=== PATIENT | female | born 1980 | race Caucasian/White ===

== ENCOUNTER → 2016-09-07 | Outpatient (CLI) | payer BC ==
[~2016-09-07] MED LIST: ATOR10TA PO; GADOBUTROL 10 MMOL/10 ML VIAL IV ONE; OMEP40CA5 PO; SERT50TA PO
--- NOTE | 2016-09-07 16:09 | KCIC ---
PROCEDURE MRI right supraclavicular mass within without contrast. HISTORY Right supraclavicular mass. TECHNIQUE MRI of the right supraclavicular region that was performed before and after the intravenous administration of 8 milliliters Gadavist. COMPARISON 08/30/2010. FINDINGS There is a fat signal mass in the right supraclavicular region as seen on the prior study. It measures 6.3 x 3.6 x 3.0 centimeters. Previously it measured 5.8 x 2.4 x 2.9 centimeters. There is no enhancing or soft tissue component. It is completely subcutaneous and does not extend deep to the clavicle. There is bone marrow edema within the distal clavicle. Acromioclavicular osteoarthritis is mild. There are no enlarged lymph nodes. IMPRESSION - Benign-appearing 6.3 x 3.6 cm subcutaneous lipoma in the right supraclavicular region. This has increased in size slowly since 2010. Ongoing follow-up or surgical consultation are suggested given instability. - Bone marrow edema within the distal clavicle suggests a stress lesion or contusion. Correlate for trauma or repetitive stress. Electronically signed by: Alex Salas (Sep 07, 2016 16:07:31)
== END | disposition home or self-care (01) ==
LOC: KCIC MRI 13:37
PROVIDERS: ATTEND Nurse Practitioner Family
DX: D17.0 Benign lipomatous neoplasm of skin and subcutaneous tissue of head, face and neck (principal)
CPT/HCPCS: 70543; A9585

== ENCOUNTER → 2018-04-09 | Outpatient (CLI) | payer BC ==
[~2018-04-09] MED LIST changes: -GADOBUTROL 10 MMOL/10 ML VIAL IV ONE
--- NOTE | 2018-04-09 09:25 | KCIC ---
MRI Cervical Spine Without Contrast History: Bilateral shoulder pain, neck pain, bilateral upper extremity pain and numbness Technique: Multiplanar, multi sequential noncontrast MR imaging was performed of the cervical spine. Comparison: None Findings: Cervical vertebral body stature and AP alignment are preserved. There is straightening of the cervical spine. Cervical cord caliber is within normal limits without significant focal signal abnormality. There is pgly-ay-zdrmxavz degenerative disc disease at C4-5 and to lesser degree at C5-6. There are posterior and anterior annular tears at C5-C6 and also posteriorly at C4-5. Not included on the axial images, there is buckling of the ligamentum flavum on the right at the T2-3 level with likely at least mild right lateral recess stenosis, also mild narrowing of the posterior right neural foramen. C2-C3: Spinal canal and the neural foramina are adequate. C3-C4: There is minimal posterior central protrusion. Central canal is minimally narrowed to about 9 mm. Neural foramina are overall adequate. There is minimal right uncovertebral degenerative change. C4-C5: There is disc osteophyte complex, superimposed protrusion, more eccentric to the right lateral recess. Central canal is narrowed to about 7 mm, greater degree of moderate right lateral recess stenosis. There is effacement of ventral subarachnoid space and contact of the ventral cord greater in the right lateral recess. Left neural foramen is adequate. There is right uncovertebral degenerative change. There is moderate to severe narrowing of the right neural foramen. C5-C6: There is broad, anterior extradural signal abnormality which is internally hyperintense on the T2 and STIR sequences, extent slightly above and to a greater degree below the intervertebral disc space. This is estimated about 12 mm transverse by 3 mm AP by about 17 mm CC. This is superimposed on more central posterior protrusion. There is indentation upon the ventral thecal sac cord with significant central canal stenosis about 3-4 mm. There is bilateral facet degenerative change. C6-C7: There is a small protrusion in the left lateral recess with mild indentation upon the ventral thecal sac, partial focal effacement of the ventral subarachnoid space. Central canal is borderline about 10 mm. Neural foramina are adequate. C7-T1: Neural foramina and spinal canal are adequate. Impression: 1. There is severe spinal stenosis at C5-6. There is anterior extradural signal abnormality centered about this level although extent below and to lesser degree above the intervertebral disc space level. This could be due to disc extrusion although underlying fluid of uncertain sterility or less likely hematoma not excluded based on signal features, more hyperintense on the T2 and STIR sequences than adjacent disc. 2. There is egym-dd-aalvutlv spinal stenosis with a greater degree of right lateral recess stenosis C4-5. There is mild spinal stenosis C3-4. 3. There is moderate to severe narrowing of the right C4-5 neural foramen. 4. There is uztf-xc-shhhdbcy degenerative disc disease at C4-5 and to lesser degree at C5-6. Findings discussed with speech assistant for Dr. Lino at 04/09/2018 9:21 AM, to inform doctor of findings. Electronically signed by: Corwin Us MD (04/09/2018 9:22 AM) [id number]
== END | disposition home or self-care (01) ==
LOC: KCIC MRI 07:35
PROVIDERS: ATTEND Orthopaedic Surgery
DX: M50.322 Other cervical disc degeneration at C5-C6 level (principal); M48.02 Spinal stenosis, cervical region; M85.88 Other specified disorders of bone density and structure, other site
CPT/HCPCS: 72141

== ENCOUNTER → 2018-04-18 | Outpatient (CLI) | payer BC ==
[2018-04-18 13:17] LABS: BASO % 0 % (0-3); EOS % 0 % (0-3); HEMATOCRIT 42.9 % (36.0-47.0); HEMOGLOBIN 15.2 g/dL (12.0-15.5); LYMPH # 3.1 x10^3/uL (1.0-4.8); LYMPH % 30 % (24-48); MEAN CORPUSCULAR HEMOGLOBIN 34 pg (25-35); MEAN CORPUSCULAR HGB CONC 35 g/dL (31-37); MEAN CORPUSCULAR VOLUME 95 fL (79-100); MONO # 0.5 x10^3/uL (0.0-1.1); MONO % 5 % (0-9); NEUT # 6.7 x10^3uL (1.8-7.7); NEUT % 65 % (31-73); PLATELET COUNT 251 x10^3/uL (140-400); RED BLOOD COUNT 4.52 x10^6/uL (3.50-5.40); RED CELL DISTRIBUTION WIDTH 12.8 % (11.5-14.5); WHITE BLOOD COUNT 10.4 x10^3/uL (4.0-11.0)
[2018-04-18 13:47] LABS: ALBUMIN/GLOBULIN RATIO 1.1 (1.0-1.7); CALCIUM 9.7 mg/dL (8.5-10.1); CREATININE 0.7 mg/dL (0.6-1.0); GFR 93.2; POTASSIUM 3.9 mmol/L (3.5-5.1); TOTAL BILIRUBIN 0.4 mg/dL (0.2-1.0); TOTAL PROTEIN 7.5 g/dL (6.4-8.2)
== END | disposition home or self-care (01) ==
LOC: SURGPAT 12:08
PROVIDERS: ATTEND Neurological Surgery
DX: Z01.818 Encounter for other preprocedural examination (principal); M50.10 Cervical disc disorder with radiculopathy, unspecified cervical region; M48.02 Spinal stenosis, cervical region
CPT/HCPCS: 36415; 80053; 85025; 87641

== ENCOUNTER 2018-04-25 10:21 | Day surgery (SDC) | payer BC ==
[~2018-04-25] VITALS: Ht 160 cm; Wt 86.6 kg
--- NOTE | 2018-04-25 09:35 | HP ---
ADMIT DATE: 04/25/2018. HISTORY OF PRESENT ILLNESS: The patient is a pleasant 37-year-old, who is noticing some neck pain and pain which radiates into both of her proximal shoulders. She also notices that her middle, ring and little fingers are numb. The problem has been present for the last few months. It started spontaneously. She rates when it is severe that it is 6/10. There really is not any pain in her arms. She does not notice any problems with unsteadiness. Being more active and using her arms more can increase the feelings of numbness. It can also increase her neck and trapezius region pain. She is not taking any pain medications. She did have Toradol and steroid injection by her PCP. She has not noticed any problems with unsteadiness. PAST MEDICAL HISTORY: Arthritis, rheumatoid arthritis, tumors or growth. PAST SURGICAL HISTORY: Tonsillectomy in 1981, cholecystectomy in 2006, partial hysterectomy in 2012. FAMILY HISTORY: Alzheimer disease, aneurysm, cancer, diabetes, heart problem/disease, hypertension, [place] at an early age, migraine headaches. 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 . Denies substance abuse. Smokes half pack per day and has for 15 years. Drinks alcohol 1-2 times per year. Drinks coffee and soda daily. ALLERGIES: No known drug allergies. CURRENT MEDICATIONS: Omeprazole, sertraline, atorvastatin, gabapentin. REVIEW OF SYSTEMS: A 12-point review of systems was obtained and is noncontributory except for that mentioned above. PHYSICAL EXAMINATION: NEUROSURGERY EXAMINATION: GENERAL APPEARANCE: Alert, pleasant, no acute distress. HEAD: Normocephalic and atraumatic. NECK AND THYROID: Mild tenderness with palpation of posterior cervical region. SKIN: Warm and dry. MUSCULOSKELETAL: Cervical paraspinal muscle bulk is normal, cervical range of motion is restricted, normal range of motion of the upper extremities bilaterally. EXTREMITIES: No clubbing, cyanosis or edema. NEUROLOGIC: Alert and oriented x 3, normal recent and remote memory, strength 5/5 in bilateral upper and lower extremities, sensory was intact to light touch in the upper and lower extremities except for decrease involving the middle and ring fingers of both hands, reflexes were present and symmetric in the upper and lower extremities bilaterally and were 2/4 except for knee jerks which were 3/4. Toes were downgoing. Normal gait. IMAGING: I reviewed her cervical MRI scan. On that study, there is severe spinal stenosis at C5-C6. There is also an anterior extradural signal abnormality at this level extending into the canal, which was felt by the neurosurgeon, Dr. Murphy and neuroradiologist at to be consequence of a disc extrusion. She has sbmg-vo-uwhpoqrg stenosis at C4-C5. ASSESSMENT/PLAN: The patient has severe spinal stenosis at C5-C6. My feeling is that she would best be treated with an anterior cervical discectomy and fusion. She understands. She would like to proceed. We will make the arrangements. ASTRID JACOBSON MD DR: AIDA/jesica JOB#: [id number] / [id number] DIDIER
[~2018-04-25 10:21] MED LIST changes: +BACITRACIN 50,000 UNIT in IV NORMAL SALINE 1000ML BAG 1,000 ML IRR ONE; +BUPIVAC MPF-EPI 0.5%-1:200000 30 ML VIAL. ONE; +GELATIN SPONGE SIZE 100. ONE; +HYDROmorphone 2 MG/ML VIAL IV PRN; +IV RINGERS,LACTATED 1000ML 1,000 ML IV SCH; +LIDOCAINE 1% PF 2 ML VIAL. ID PRN; +MORPHINE SULFATE 2 MG/ML VIAL. IV PRN; +ONDANSETRON PF 4 MG/2 ML VIAL. IV PRN; +PROCHLORPERAZINE 10 MG/2 ML VIAL. IV PRN; +THROMBIN TOPICAL 5,000 UNIT VIAL. ONE; +fentaNYL PF VIAL 100 MCG/2 ML VIAL IV PRN
[2018-04-25] MEDS ORDERED: ROCURONIUM 50 MG/5 ML VIAL. ONE ×2 (10:54→12:59)
[2018-04-25] MEDS ORDERED: MIDAZOLAM HCL/PF 2 MG/2 ML VIAL. ONE (11:18)
[2018-04-25] MEDS ORDERED: REMIFENTANIL 1 MG VIAL. IV ONE (11:18)
[2018-04-25] MEDS ORDERED: fentaNYL PF VIAL 100 MCG/2 ML VIAL ONE (11:18)
[2018-04-25] MEDS ORDERED: DEXAMETHASONE SOD PHOS 20 MG/5 ML VIAL. ONE (11:19)
[2018-04-25] MEDS ORDERED: DESFLURANE > 120 MINUTES IH ONE (11:19)
[2018-04-25] MEDS ORDERED: ONDANSETRON PF 4 MG/2 ML VIAL. ONE (11:19)
[2018-04-25] MEDS ORDERED: PROPOFOL 50 ML IV ONE (11:19)
[2018-04-25] MEDS ORDERED: PHENYLEPHRINE in 0.9% NACL PF 1 MG/10 ML SYRINGE. IV ONE (11:19)
[2018-04-25] MEDS ORDERED: PROPOFOL 20 ML IV ONE (11:19)
[2018-04-25] MEDS ORDERED: LIDOCAINE 2% PF Vial for OR 5 ML VIAL. ONE (11:19)
[2018-04-25] MEDS ORDERED: 0.9 % SODIUM CHLORIDE 20 ML VIAL. IJ ONE (11:22)
[2018-04-25] MEDS ORDERED: ALBUTEROL SULFATE 2.5 MG/3 ML NEBU. ONE (12:46)
[2018-04-25] MEDS ORDERED: NEOSTIGMINE METHYLSULFATE 5 MG/5 ML SYRINGE. ONE (13:42)
[2018-04-25] MEDS ORDERED: GLYCOPYRROLATE 1 MG/5 ML VIAL. ONE (13:42)
--- NOTE | 2018-04-25 13:44 | RAD ---
Portable chest, 04/25/2018: HISTORY: Shortness of breath Comparison is made to a study from 07/26/2015. An ET tube is in place with its tip located well above the ron. The heart size is normal. There are streaky suprahilar opacities bilaterally, right greater than left suggesting atelectasis/infiltrate. There is only minimal linear atelectasis in the left base. There is no evidence of pneumothorax or pleural fluid. IMPRESSION: 1. The ET tube is in satisfactory position. 2. Moderate streaky bilateral suprahilar opacities, right greater than left suggesting atelectasis/infiltrate. Aspiration is a possibility. Electronically signed by: Demetrio Collins MD (04/25/2018 1:41 PM) [facility]
[2018-04-25] MEDS ORDERED: SEVOFLURANE 61 TO 120 MINUTES. IH ONE (14:15)
--- NOTE | 2018-04-25 14:54 | DISCH ---
DISCHARGE INSTRUCTIONS Condition on Discharge Condition on Discharge: Stable Activity After Discharge Activity Instructions for Disc: Activity as tolerated Lifting Instructions after Dis: No heavy lifting Diet after Discharge Additional Diet Restrictions: resume home diet Contacting the after DC Call your doctor for: Concerns you may have Follow-Up Follow up with: Dr. Jacobson to reschedule surgery Follow Up With: pulmonary Dr. Isaacs [phone] on MondayApril 27 at 11:30 milly 203 ASTRID JACOBSON MD Apr 25, 2018 14:54
[2018-04-25] MEDS ORDERED: ALBUTEROL SULFATE 8GM INHALER. ONE (15:00)
--- NOTE | 2018-04-25 15:04 | EKG ---
[facility] [address] [place] [address] Test Date: 2018-04-25 Test Time: 14:19:59 Pat Name: OLRI ESPINOSA Department: Room: Gender: F Gas Controller: ZAHIDA : 1980 Requested By: ASTRID JACOBSON Order Number: [id number] Reading MD: Measurements Intervals [place] Rate: 72 P: 54 [place]: 120 QRS: 78 QRSD: 76 T: 40 QT: 362 QTc: 398 Interpretive Statements SINUS RHYTHM NORMAL ECG RI6.01 No previous ECG available for comparison
[2018-04-25 15:08] VITALS: BP 114/64
--- NOTE | 2018-04-26 09:28 | EKG ---
[facility] [address] [place] [address] Test Date: 2018-04-25 Test Time: 14:19:59 Pat Name: LORI ESPINOSA Department: Room: Gender: F Client Manager Large Law: : 1980 Requested By: ASTRID JACOBSON Order Number: [id number] Reading MD: Ish Alonzo Measurements Intervals [place] Rate: 72 P: 54 NV: 120 QRS: 78 QRSD: 76 T: 40 QT: 362 QTc: 398 Interpretive Statements SINUS RHYTHM NORMAL ECG RI6.01 No previous ECG available for comparison Electronically Signed On 04-30-2018 12:35:02 WOOL SACKER by Ish Alonzo
--- NOTE | 2018-04-27 10:58 | EKG ---
[facility] [address] [place] [address] Test Date: 2018-04-25 Test Time: 14:19:59 Pat Name: LORI ESPINOSA Department: Room: Gender: F Ccna: : 1980 Requested By: ASTRID JACOBSON Order Number: [id number] Reading MD: Ish Alonzo Measurements Intervals [place] Rate: 72 P: 54 NV: 120 QRS: 78 QRSD: 76 T: 40 QT: 362 QTc: 398 Interpretive Statements SINUS RHYTHM NORMAL ECG RI6.01 No previous ECG available for comparison Electronically Signed On 04-30-2018 12:34:56 HOP GROWER by Ish Alonzo
[2018-05-14] MEDS ORDERED: FLUT10.6 IH (14:54)
[2018-05-14] MEDS ORDERED: OXYC-328 PO (14:54)
== END 2018-04-25 15:08 | disposition home or self-care (01) ==
LOC: SURG 10:21
PROVIDERS: ATTEND Neurological Surgery
DX: M48.02 Spinal stenosis, cervical region (principal); Z53.8 Procedure and treatment not carried out for other reasons; M50.122 Cervical disc disorder at C5-C6 level with radiculopathy; M06.9 Rheumatoid arthritis, unspecified; M19.90 Unspecified osteoarthritis, unspecified site; Z90.49 Acquired absence of other specified parts of digestive tract; Z90.710 Acquired absence of both cervix and uterus; Z98.890 Other specified postprocedural states; Z82.0 Family history of epilepsy and other diseases of the nervous system; Z83.3 Family history of diabetes mellitus; Z82.49 Family history of ischemic heart disease and other diseases of the circulatory system; F17.210 Nicotine dependence, cigarettes, uncomplicated; Z72.89 Other problems related to lifestyle; Z79.899 Other long term (current) drug therapy; Z91.048 Other nonmedicinal substance allergy status
CPT/HCPCS: 71045; 93005; J0690; J1100; J2001; J2250; J2405; J2704; J2710; J3010; J3490; J7613; J2370; J7030

== ENCOUNTER → 2018-05-02 | Outpatient (CLI) | payer BC ==
[2018-04-25 15:08] VITALS: BP 114/64
[~2018-05-02] MED LIST changes: -BACITRACIN 50,000 UNIT in IV NORMAL SALINE 1000ML BAG 1,000 ML IRR ONE; -BUPIVAC MPF-EPI 0.5%-1:200000 30 ML VIAL. ONE; -GELATIN SPONGE SIZE 100. ONE; -HYDROmorphone 2 MG/ML VIAL IV PRN; -IV RINGERS,LACTATED 1000ML 1,000 ML IV SCH; -LIDOCAINE 1% PF 2 ML VIAL. ID PRN; -MORPHINE SULFATE 2 MG/ML VIAL. IV PRN; -ONDANSETRON PF 4 MG/2 ML VIAL. IV PRN; -PROCHLORPERAZINE 10 MG/2 ML VIAL. IV PRN; -THROMBIN TOPICAL 5,000 UNIT VIAL. ONE; -fentaNYL PF VIAL 100 MCG/2 ML VIAL IV PRN
--- NOTE | 2018-05-02 14:03 | RAD ---
CT chest without contrast 05/02/2018 Clinical indications: Shortness of air, abnormal chest radiograph COMPARISON: Chest radiograph 05/02/2018 TECHNIQUE: Multiple CT images of the chest were obtained without contrast. *One or more of the following individualized dose reduction techniques were utilized for this examination: 1. Automated exposure control. 2. Adjustment of the mA and/or kV according to patient size. 3. Use of iterative reconstruction technique. FINDINGS: Heart size normal without significant pericardial effusion. The thoracic aorta is normal in caliber. No axillary, mediastinal or hilar lymphadenopathy. There are scattered small mediastinal and hilar calcified granulomas. There is minimal triangle or soft tissue density in the anterior mediastinum consistent with residual thymic tissue. The central airways are patent. Resolution of bilateral suprahilar opacities seen on recent chest radiograph. No pleural effusion, pneumothorax or focal consolidation. No suspicious noncalcified pulmonary nodules. There is a tiny calcified granuloma in the mid right upper lobe. No destructive osseous lesions. Limited images of the upper abdomen: Cholecystectomy. IMPRESSION: Resolution of suprahilar opacities most consistent with atelectasis. Electronically signed by: Clinton Garcia MD (05/02/2018 1:59 PM) [id number]
== END | disposition home or self-care (01) ==
LOC: CT 13:50
PROVIDERS: ATTEND Internal Medicine Pulmonary Disease
DX: J84.10 Pulmonary fibrosis, unspecified (principal); Z90.49 Acquired absence of other specified parts of digestive tract
CPT/HCPCS: 71250

== ENCOUNTER → 2018-05-14 | Outpatient (CLI) | payer BC ==
[2018-04-25 15:08] VITALS: BP 114/64
[~2018-05-14] MED LIST changes: +DOCU-109 PO; +FLUT10.6 IH; +METH750T2 PO; +OXYC1TAB22 PO; +OXYC1TAB7 PO
--- NOTE | 2018-05-15 10:11 | SLEEP ---
DATE OF STUDY: 05/14/2018 PRIMARY CARE HYSICIAN: Dr. Jacqueline Calle. REFERRING PHYSICIAN: Dr. Dougie Guerrero. The patient is 37 years old, weighs 190 pounds and has a BMI of 34. [place] score was 4. The patient underwent diagnostic sleep study at [facility] to rule out ELIDA. During the night study, the patient spent 405 minutes in bed and slept for 356 minutes with a sleep efficiency of 88%. Sleep latency was 50 minutes with a REM latency of 194 minutes. Overall, sleep architecture showed normal stage 1 and stage 2 sleep, increased slow wave and normal REM sleep. During the night study, the patient had 4 obstructive apneas, 1 mixed apnea, no central apneas and 8 hypopneas. The patient's apnea hypopnea index was only 2 per hour. Supine index 3 per hour and the REM index of 7 per hour. EKG monitoring revealed normal sinus rhythm, average heart rate of 67 beats per minute, no arrhythmias seen. Nocturnal oximetry study revealed an average oxygen saturation of 96%, the lowest of 87%. Only 0.3% of the time oxygen saturation remained between 80% and 89%. PLMS were seen at index of 9 per hour and 3 per hour caused EEG arousals. Due to low AHI, the patient did not meet the split night criteria for CPAP initiation. IMPRESSION: 1. No clinically significant sleep disorder breathing. The patient's AHI for the entire night was 2 per hour. 2. No clinically significant nocturnal hypoxia. 3. Mild PLMS, which does not need to be treated. RECOMMENDATIONS: 1. The patient did not meet the criteria for CPAP initiation. 2. Weight loss is advised. 3. Avoid PRESIDENT CEO & FOUNDER depressants. KENTON WALLS MD DR: HERNESTO/jesica JOB#: [id number] / [id number] JACQUELINE Ga MD, GEORGE MD
== END | disposition home or self-care (01) ==
LOC: SLPLAB 18:27
PROVIDERS: ATTEND Internal Medicine Pulmonary Disease
DX: R06.83 Snoring (principal); G47.61 Periodic limb movement disorder
CPT/HCPCS: 95810

== ENCOUNTER 2018-05-16 06:58 | Observation (INO) | payer BC ==
[~2018-05-16] VITALS: Ht 160 cm; Wt 86.6 kg
[2018-05-16] VITALS (7 sets, daily range): BP systolic 100–129; BP diastolic 55–84
[~2018-05-16 06:58] MED LIST changes: +BACITRACIN 50,000 UNIT in IV NORMAL SALINE 1000ML BAG 1,000 ML IRR ONE; -DOCU-109 PO; -METH750T2 PO; -OXYC1TAB7 PO
[2018-05-16] MEDS ORDERED: PROCHLORPERAZINE 10 MG/2 ML VIAL. IV PRN (07:00)
[2018-05-16] MEDS ORDERED: GELATIN SPONGE SIZE 100. ONE (07:00)
[2018-05-16] MEDS ORDERED: fentaNYL PF VIAL 100 MCG/2 ML VIAL IV PRN (07:00)
[2018-05-16] MEDS ORDERED: ONDANSETRON PF 4 MG/2 ML VIAL. IV PRN ×2 (07:00→10:15)
[2018-05-16] MEDS ORDERED: MORPHINE SULFATE 2 MG/ML VIAL. IV PRN (07:00)
[2018-05-16] MEDS ORDERED: THROMBIN TOPICAL 20,000 UNIT SPRAY.SYRN KIT TP ONE (07:00)
[2018-05-16] MEDS ORDERED: IV RINGERS,LACTATED 1000ML 1,000 ML IV SCH (07:00)
[2018-05-16] MEDS ORDERED: BUPIVAC MPF-EPI 0.5%-1:200000 30 ML VIAL. ONE (07:00)
[2018-05-16] MEDS ORDERED: HYDROmorphone 2 MG/ML VIAL IV PRN (07:00)
[2018-05-16] MEDS ORDERED: LIDOCAINE 1% PF 2 ML VIAL. ID PRN (07:00)
[2018-05-16] MEDS ORDERED: IPRATRPIUM/ALBUTEROL 0.5/2.5MG 3 ML NEBU. NEB ONE (07:30)
[2018-05-16] MEDS ORDERED: fentaNYL PF VIAL 250 MCG/5 ML VIAL ONE (08:26)
[2018-05-16] MEDS ORDERED: MIDAZOLAM HCL/PF 2 MG/2 ML VIAL. ONE (08:26)
[2018-05-16] MEDS ORDERED: REMIFENTANIL 2 MG VIAL. IV ONE (08:26)
[2018-05-16] MEDS ORDERED: ROCURONIUM 50 MG/5 ML VIAL. ONE (08:27)
[2018-05-16] MEDS ORDERED: DEXAMETHASONE SOD PHOS 20 MG/5 ML VIAL. ONE (09:46)
[2018-05-16] MEDS ORDERED: PHENYLEPHRINE in 0.9% NACL PF 1 MG/10 ML SYRINGE. IV ONE (09:46)
[2018-05-16] MEDS ORDERED: ONDANSETRON PF 4 MG/2 ML VIAL. ONE (09:46)
[2018-05-16] MEDS ORDERED: PROPOFOL 20 ML IV ONE ×2 (09:46→10:13)
[2018-05-16] MEDS ORDERED: LIDOCAINE 2% PF Vial for OR 5 ML VIAL. ONE (09:46)
[2018-05-16] MEDS ORDERED: SEVOFLURANE > 120 MINUTES. IH ONE (09:47)
[2018-05-16] MEDS ORDERED: ACETAMINOPHEN 325 MG TABLET. PO PRN (10:15)
[2018-05-16] MEDS ORDERED: MAGNESIUM HYDROXIDE 2,400 MG/30 ML ORAL.SUSP. PO PRN (10:15)
[2018-05-16] MEDS ORDERED: NALOXONE 0.4 MG/ML VIAL. IV PRN (10:15)
[2018-05-16] MEDS ORDERED: ZOLPIDEM 5 MG TABLET. PO PRN (10:15)
[2018-05-16] MEDS ORDERED: MAG HYDROX/ALUMINUM HYD/SIMETH 30 ML ORAL.SUSP PO PRN (10:15)
[2018-05-16] MEDS ORDERED: 0.9 % SODIUM CHLORIDE 10 ML DISP.SYRIN. IV PRN (10:15)
[2018-05-16] MEDS ORDERED: CALCIUM CARBONATE 500 MG TAB.CHEW PO PRN (10:15)
[2018-05-16] MEDS ORDERED: diphenhydrAMINE HCL 25 MG CAPSULE PO PRN (10:15)
[2018-05-16] MEDS ORDERED: ePHEDrine PF IN SALINE 50 MG/5 ML DISP.SYRIN IV ONE (10:50)
[2018-05-16] MEDS ORDERED: NEOSTIGMINE METHYLSULFATE 5 MG/5 ML SYRINGE. ONE (11:32)
[2018-05-16] MEDS ORDERED: GLYCOPYRROLATE 1 MG/5 ML VIAL. ONE (11:32)
[2018-05-16] MEDS: fentaNYL PF VIAL 100 MCG/2 ML VIAL IV PRN ×2 (12:17→12:51)
[2018-05-16] MEDS: POTASSIUM CL 20MEQ D5-0.45NACL 1,000 ML IV SCH (12:57)
[2018-05-16] MEDS: oxyCODONE/APAP 5/325 1 TAB TABLET PO PRN ×3 (13:21→21:15)
--- NOTE | 2018-05-16 14:23 | DISCH ---
DISCHARGE INSTRUCTIONS Condition on Discharge Condition on Discharge: Stable Activity After Discharge Activity Instructions for Disc: Activity as tolerated Other activity instructions: no driving for a week Bathing Instructions: Shower-keep dressing dry Lifting Instructions after Dis: No heavy lifting, No pulling or pushing, Do not lift >10 pounds Diet after Discharge Additional Diet Restrictions: resume home diet Wound Incision Care Wound/Incision Care: Ice to area for comfort Other wound/incision instructi: may remove dressing in 48 hours, no soaking Contacting the DRAdalberto after DC Call your doctor for: Concerns you may have Follow-Up Follow up with: Dr. Jacobson's nurse in 2 weeks [phone] ASTRID JACOBSON MD May 16, 2018 14:23
[2018-05-16] MEDS ORDERED: METH750T2 PO (14:25)
[2018-05-16] MEDS ORDERED: OXYC1TAB7 PO (14:25)
[2018-05-16] MEDS ORDERED: DOCU-109 PO (14:25)
[2018-05-16] MEDS: METHOCARBAMOL 750 MG TABLET PO SCH ×2 (14:28→21:15)
[2018-05-16] MEDS: ceFAZolin SODIUM 1 GM in IV DEXTROSE 5% 50 ML IV SCH (16:18)
[2018-05-16] MEDS ORDERED: SERTRALINE 50 MG TABLET. PO SCH (17:00)
[2018-05-16] MEDS ORDERED: BUDESONIDE 0.5 MG/2 ML NEBU. NEB SCH (20:00)
[2018-05-16] MEDS ORDERED: ATORVASTATIN CALCIUM 10 MG TABLET. PO SCH (21:00)
[2018-05-16] MEDS ORDERED: NON FORMULARY ITEM (Fluticasone Propionate (Flovent 44MCG Hfa) 2 PUFF) IH SCH (21:00)
[2018-05-16] MEDS: DOCUSATE SODIUM 100 MG CAPSULE. PO SCH (21:14)
[2018-05-17] MEDS: ceFAZolin SODIUM 1 GM in IV DEXTROSE 5% 50 ML IV SCH ×2 (01:05→08:36)
[2018-05-17] MEDS: oxyCODONE/APAP 5/325 1 TAB TABLET PO PRN ×3 (01:15→09:13)
[2018-05-17] MEDS: POTASSIUM CL 20MEQ D5-0.45NACL 1,000 ML IV SCH (02:20)
[2018-05-17 03:00] VITALS: BP 118/69
[2018-05-17 06:35] VITALS: BP 121/80
[2018-05-17] MEDS ORDERED: PANTOPRAZOLE 40 MG TABLET.DR. PO SCH (07:30)
[2018-05-17] MEDS: METHOCARBAMOL 750 MG TABLET PO SCH (08:34)
[2018-05-17] MEDS: DOCUSATE SODIUM 100 MG CAPSULE. PO SCH (08:34)
[2018-05-17 09:18] VITALS: BP 122/79
--- NOTE | 2018-05-18 18:07 | PATHOLOGY ---
[facility] Accession Number: [id number] . 01 Material submitted: . CERVICAL DISC . 01 Clinical history: . Cervical herniated disc and radiculopathy, stenosis . 02 Diagnosis: Segments of cartilaginous tissue and bone, cervical disc: - Degenerative changes of cartilaginous tissue. LBQ/05/18/2018 . 02 Comment: There is no evidence of an acute inflammatory process or malignancy. (JPM/db; 05/18/2018) . 02 Electronically signed: . Brian Bustos MD, Pathologist NPI- [id number] . 01 Gross description: . Received in formalin labeled "Taylor Uriostegui, cervical disc," are several pieces of glistening, fibrous tissue measuring 2.5 x 2.2 x 0.3 cm in aggregate dimensions, containing small fragments of possible bone. The tissue is filtered and submitted entirely in cassette A1, following decalcification. (TSD; 05/16/2018) TOB/TOB . 02 Pathologist provided ICD-10: M50.30 . 02 CPT . 268546, [id number] Specimen Comment: A courtesy copy of this report has been sent to Specimen Comment: [phone], . Specimen Comment: Report sent to / DR SUTHERLAND Performed at: 01 [facility] [address], [place] [id number] MD Gonsalo Fernández MD Phone: [phone] Performed at: 02 [facility] [address] [place], [place] [id number] MD Brian Bustos MD Phone: [phone]
--- NOTE | 2018-05-23 21:11 | OP ---
DATE OF SURGERY: 05/16/2018 PREOPERATIVE DIAGNOSIS: Cervical spinal stenosis, C5-C6 with cervical myelopathy. POSTOPERATIVE DIAGNOSIS: Cervical spinal stenosis, C5-C6 with cervical myelopathy. OPERATION PERFORMED: Anterior cervical microdiscectomy, C5-C6; anterior cervical interbody fusion, C5-C6 with interbody fusion cage packed with allograft and autograft bone, anterior cervical plate, C5-C6 using the Opteryx system. The operation was done with EMG monitoring, SSEP monitoring, motor evoked potentials, NIMS monitoring, fluoroscopy and microscopic dissection. SURGEON: Miah Jacobson M.D. FISH CAKE MAKER: Sheila García assisted with the surgery. She assisted with the exposure, the microdiscectomy as well as the closure. OPERATIVE INDICATIONS: The patient is a pleasant 37-year-old woman who developed neck pain and then pain, which radiated into both of her arms with numbness in the middle, ring and little fingers of both of her hands. The numbness became more and more severe. On imaging studies, there was severe spinal stenosis present at C5-C6. She did have more moderate stenosis present at C4-C5. I recommended an anterior cervical discectomy at C5-C6. The images suggested a sequestered disc fragment and I did have this reviewed by the neuroradiologist and neurosurgeons at who felt that surgery was appropriate for this level and that this was almost certainly herniated disc material. The patient understood the surgery, the risks involved, the technique of the operation and she wished to go ahead. DESCRIPTION OF PROCEDURE: Following general endotracheal anesthesia, the patient was positioned supine on the operating room table. The anterior cervical region was then prepped and draped in standard fashion. GIULIANO hose and AV impulse boots were applied for DVT prophylaxis. A microscope was draped. Fluoroscopy was then brought to the field. Monitoring was established. Ancef 2 g was given less than 1 hour prior to initiation of the surgery. Using fluoroscopic guidance, incision was made in the midline around to the right side in a skin crease and dissected and skin and subcutaneous tissue and then just sharply divided a portion of the platysma. I dissected around the medial aspect of the sternocleidomastoid and carotid artery sheath down the anterior cervical vertebral body and I reflected the trachea and esophagus contralaterally placing anterior cervical retractors wedged in the longus colli muscles. I placed 14 mm distraction pins in C5 and C6 and brought in the microscope during this time and the remainder of surgery was done with the microscope using microscopic technique. I distracted the disc space. I incised the anterior annulus with #11 blade. I confirmed my positions fluoroscopically. I performed a discectomy with pituitary rongeurs. I scraped away the cartilaginous endplate. Posteriorly, I drilled the posterior spurring and then used the 1 and 2 mm micro Kerrison's to remove the annulus. There was a moderately large subligamentous disc herniation and I began to tease back and remove multiple fragments from superiorly and then, there was a large inferior fragment behind the body of C6, which I gently teased superiorly and removed markedly decompressing the entire region. At this point, though I felt that I had an excellent decompression, I did open widely bilaterally and visualized the dura after opening the posterior ligament. Hemostasis was excellent. I measured and placed interbody fusion cage, which was packed with allograft and autograft bone after this was gently tapped into position. I placed an anterior 12 mm plate and used four 14 mm screws, which were all locked. Following this, then irrigated copiously, removed the retractors, explored carefully. Hemostasis was perfect. I closed the wound in layers with absorbable suture and the skin was closed with a 4-0 subcuticular stitch. I did close the platysma as a separate layer. The patient awakened uneventfully, taken to recovery room in excellent condition and she immediately noticed improvement in her numbness and was quite pleased with the surgery. MIAH JACOBSON MD DR: AIDA/jesica JOB#: [id number] / [id number] DIDIER
== END 2018-05-17 09:43 | disposition home or self-care (01) ==
LOC: SURG 06:58 → 4 SOUTHEST 10:14
PROVIDERS: ADMIT Neurological Surgery; ATTEND Neurological Surgery
DX: M48.02 Spinal stenosis, cervical region (principal); M50.022 Cervical disc disorder at C5-C6 level with myelopathy
CPT/HCPCS: 20930; 20936; 22551; 22853; 76000; 88304; 88311; 94640; 96365; 96366; 97116; 97162; 97530; A7015; C1713; C1821; G0378; G0379; G8978; G8979; G8980; J0690; J0780; J1100; J2001; J2250; J2370; J2405; J2704; J2710; J3010; J3490; J7030; J7120

== ENCOUNTER → 2019-02-26 | Outpatient (CLI) | payer BC ==
[~2019-02-26] MED LIST changes: -BACITRACIN 50,000 UNIT in IV NORMAL SALINE 1000ML BAG 1,000 ML IRR ONE; +DOCU-109 PO; +METH750T2 PO; +OXYC1TAB7 PO
--- NOTE | 2019-02-26 15:59 | KCIC ---
CERVICAL SPINE WO CONTRAST History: Cervical stenosis. Radiculopathy. Chronic neck pain and right upper extremity pain. Previous anterior fusion. Technique: Multiplanar, multi sequential noncontrast MR imaging was performed of the cervical spine. Comparison: April 09, 2018 Findings: Interstitial stabilization and interbody fusion C5-C6. Susceptibility artifact degrades evaluation. Normal alignment. Normal vertebral body height. No fracture. No pathologic marrow replacing process. Normal appearance of the cervical spinal cord. No pathologic signal abnormality. C2-C3: Small posterior disc osteophyte complex. No canal narrowing. Left uncovertebral and facet arthropathy. Mild left neural foraminal narrowing. No right neuroforaminal narrowing. C3-C4: Small posterior disc osteophyte complex. Minimal cord flattening. No canal narrowing. Uncovertebral and facet arthropathy. Mild left neural foraminal narrowing. No right neuroforaminal narrowing. C4-C5: Posterior disc osteophyte complex with superimposed central disc protrusion contributing to severe canal narrowing and cord flattening. Uncovertebral and facet arthropathy. Moderate right neuroforaminal narrowing. No left neural foraminal narrowing. C5-C6: Intervertebral fusion. Moderate canal narrowing and cord flattening. No neuroforaminal narrowing. C6-C7: Posterior disc osteophyte complex. Superimposed left central disc protrusion contacting the ventral cervical cord, similar compared to preoperative imaging. Mild canal narrowing and cord flattening. No neuroforaminal narrowing. C7-T1: No canal or neuroforaminal narrowing. Impression: 1. Anterior stabilization and interbody fusion C5-C6. Moderate residual canal narrowing and cord flattening, decreased compared to preoperative imaging. 2. C4-C5 junctional spondylosis with posterior disc protrusion contributing to severe canal narrowing and cord flattening, increased compared to preoperative imaging. 3. Multilevel neural foraminal narrowing most prominent right C4-C5. Electronically signed by: Ayden Lopez DO (02/26/2019 3:56 PM) [id number]
== END | disposition home or self-care (01) ==
LOC: KCIC MRI 14:28
PROVIDERS: ATTEND Neurological Surgery
DX: M47.892 Other spondylosis, cervical region (principal); M50.20 Other cervical disc displacement, unspecified cervical region; M43.22 Fusion of spine, cervical region; M25.78 Osteophyte, vertebrae
CPT/HCPCS: 72141